=== PATIENT | female | born 1950 | race Caucasian/White ===

== ENCOUNTER 2016-09-17 09:55 | Observation (INO) | payer OTHER ==
[~2016-09-17] VITALS: Ht 167.6 cm; Wt 60.0 kg
[~2016-09-17 09:55] MED LIST: ALBU6.7H INH; CALC750T PO; ESTR42.5V PV; FLUT1INH INH; MELA10TA3 PO; MONT10TA2 PO; NITR50CA27 PO; PROB1TAB PO; TAB-TAB PO; [UNRECOGNIZED DRUG - CODE] PO
[2016-09-17 09:59] VITALS: BP 143/73; PULSE 68; RESP 16; TEMP 98.1; O2SAT 99
[2016-09-17 10:05] VITALS: RESP 16; O2SAT 98
[2016-09-17] MEDS ORDERED: [UNRECOGNIZED DRUG - CODE] PO (10:05)
[2016-09-17] MEDS ORDERED: MONT10TA2 PO (10:05)
[2016-09-17 10:28] VITALS: BP_SYST 123; BP_SYST 151; BP_DIAS 64; BP_DIAS 71; PULSE 58; RESP 16; O2SAT 98
[2016-09-17] MEDS ORDERED: ASPIRIN 325 MG TAB PO ONE (10:30)
[2016-09-17] MEDS ORDERED: SODIUM CHLORIDE 0.9% FLUSH 10 ML FLUSH IVF PRN (10:30)
--- NOTE | 2016-09-17 10:35 | PD ---
HPI Chief Complaint: Chest Pain Time Seen by Provider: 10:20 Travel History International Travel<30 days: No Contact w/Intl Traveler<30days: No Traveled to known affect area: No History of Present Illness HPI 66yo F with no significant PMH presents to the ED with c/o midsternal chest pain for 1 week. States it is pressure like and intermittent but now more constant. Sometimes it radiates up to neck but not currently. Denies any sob, n/v, diaphoresis, abdominal pain, focal weakness or numbness. Pt had abnormal EKG 2 years ago and had negative stress test with Dr. Menendez. Pt has not had any work up or chest pain since then. Former smoker. PFSH Past Medical History Cancer: No Cardiovascular Problems: No ( HAD CARDIAC CLEARANCE) Diabetes: No Endocrine: Yes Gastrointestinal Disorders: Yes (ACID REFLUX, ESOPHAGEAL STRICTURE DILATION) Genitourinary: No Hepatitis: No Hiatal Hernia: No Immune Disorder: No Musculoskeletal: No Neurologic: No Psychiatric: Yes (SLIGHTLY CLAUSTROPHOBIC) Reproductive: Yes (BILATERAL PELVIC MASSES) Respiratory: Yes (ASTHMA) Thyroid Disease: Yes (HYPOTHYROID) Tetanus Vaccination: < 5 Years Influenza Vaccination: Yes ?: Not Past Surgical History Abdominal Surgery: No AICD: No Cardiac Surgery: No Ear Surgery: No Endocrine Surgery: No Eye Surgery: No Genitourinary Surgery: No Gynecologic Surgery: Yes (HYSTERECTOMY) Joint Replacement: No Oral Surgery: No Pacemaker: No Thoracic Surgery: No Other Surgery: Yes Social History Alcohol Use: Yes (ocassionally ) Tobacco Use: No Substance Use: No Allergies-Medications (Allergen,Severity, Reaction): Coded Allergies: Nonsteroidal Anti-Inflammatory Agts (Verified Allergy, Intermediate, FACIAL SWELLING, 09/17/16) Reported Meds & Prescriptions Reported Meds & Active Scripts Active Reported Nature-Throid (Thyroid) 162.5 Mg Tab 162.5 Mg PO DAILY Singulair (Montelukast Sodium) 10 Mg Tab 10 Mg PO HS Review of Systems Except as stated in HPI: all other systems reviewed are Neg Physical Exam Narrative GENERAL: 66yo F not in distress. SKIN: Focused skin assessment warm/dry. HEAD: Atraumatic. Normocephalic. EYES: Pupils equal and round. No scleral icterus. No injection or drainage. ENT: No nasal bleeding or discharge. Mucous membranes pink and moist. NECK: Trachea midline. No JVD. CARDIOVASCULAR: Regular rate and rhythm. No murmur appreciated. RESPIRATORY: No accessory muscle use. Clear to auscultation. Breath sounds equal bilaterally. GASTROINTESTINAL: Abdomen soft, non-tender, nondistended. MUSCULOSKELETAL: No obvious deformities. No clubbing. No cyanosis. No edema. NEUROLOGICAL: Awake and alert. No obvious cranial nerve deficits. Motor grossly within normal limits. Normal speech. PSYCHIATRIC: Appropriate mood and affect; insight and judgment normal. Data Data Last Documented VS Vital Signs Date Time Temp Pulse Resp B/P Pulse Ox O2 Delivery O2 Flow Rate FiO2 09/17/16 11:27 58 16 124/68 99 Room Air 09/17/16 09:59 98.1 Orders Electrocardiogram (09/17/16 ) Basic Metabolic Panel (Bmp) (09/17/16 10:27) Ckmb (Isoenzyme) Profile (09/17/16 10:27) Complete Blood Count With Diff (09/17/16 10:27) Magnesium (Mg) (09/17/16 10:27) Prothrombin Time / Inr (Pt) (09/17/16 10:27) Act Partial Throm Time (Ptt) (09/17/16 10:27) Troponin I (09/17/16 10:27) Chest, Single Ap (09/17/16 10:27) Ecg Monitoring (09/17/16 10:27) Bilateral Bp Monitoring (09/17/16 10:27) Iv Access Insert/Monitor (09/17/16 10:27) Oximetry (09/17/16 10:27) Oxygen Administration (09/17/16 10:27) Aspirin (Aspirin) (09/17/16 10:30) Sodium Chloride 0.9% Flush (Ns Flush) (09/17/16 10:30) Labs Laboratory Tests Test 09/17/16 10:35 White Blood Count 6.1 TH/MM3 Red Blood Count 4.25 MIL/MM3 Hemoglobin 13.4 GM/DL Hematocrit 37.9 % Mean Corpuscular Volume 89.1 FL Mean Corpuscular Hemoglobin 31.5 PG Mean Corpuscular Hemoglobin 35.3 % Concent Red Cell Distribution Width 12.8 % Platelet Count 239 TH/MM3 Mean Platelet Volume 7.7 FL Neutrophils (%) (Auto) 48.3 % Lymphocytes (%) (Auto) 37.2 % Monocytes (%) (Auto) 9.0 % Eosinophils (%) (Auto) 4.8 % Basophils (%) (Auto) 0.7 % Neutrophils # (Auto) 3.0 TH/MM3 Lymphocytes # (Auto) 2.3 TH/MM3 Monocytes # (Auto) 0.6 TH/MM3 Eosinophils # (Auto) 0.3 TH/MM3 Basophils # (Auto) 0.0 TH/MM3 CBC Comment DIFF FINAL Differential Comment Prothrombin Time 10.2 SEC Prothromb Time International 0.9 RATIO Ratio Activated Partial 24.7 SEC Thromboplast Time Sodium Level 141 MEQ/L Potassium Level 3.9 MEQ/L Chloride Level 107 MEQ/L Carbon Dioxide Level 26.6 MEQ/L Anion Gap 7 MEQ/L Blood Urea Nitrogen 15 MG/DL Creatinine 0.93 MG/DL Estimat Glomerular Filtration 61 ML/MIN Rate Random Glucose 84 MG/DL Calcium Level 8.9 MG/DL Magnesium Level 2.0 MG/DL Total Creatine Kinase 68 U/L Troponin I LESS THAN 0.02 NG/ML MDM Medical Decision Making Medical Screen Exam Complete: Yes Emergency Medical Condition: Yes Interpretation(s) EKG: NSR 61bpm. Normal axis. ST depression in II, III, aVF, V4-V6, unchanged from prior EKG in 2015. Differential Diagnosis ACS vs. costochondritis vs. GERD vs. pneumonia Narrative Course 66yo F with intermittent chest pressure for a week, now more constant. Pt has not had recent cardiac work up and has not follow up with cardiology as instructed. Labs reviewed, no leukocytosis. Troponin negative. CXR showed no acute disease. Aspirin 325mg given. Pt to be admitted to chest pain center for serial EKG and cardiac enzyme and further work up for chest pain. Pt agrees with plan. Diagnosis Primary Impression: Chest pain Qualified Code: R07.9 - Chest pain, unspecified type Admitting Information Admitting Physician Requests: Hyun Kulkarni DO Sep 17, 2016 10:35
[2016-09-17 10:49] LABS: BASOPHIL % 0.7 % (0.0-2.0); EOSINOPHIL # 0.3 TH/MM3 (0-0.4); EOSINOPHIL % 4.8 % (0.0-4.0); HEMATOCRIT 37.9 % (35.0-46.0); HEMO FLAGS DIFF FINAL; LYMPH % 37.2 % (9.0-44.0); LYMPHOCYTE # 2.3 TH/MM3 (1.0-4.8); MEAN CELL VOLUME 89.1 FL (80.0-100.0); MEAN CORPUSCULAR HEMOGLOBIN 31.5 PG (27.0-34.0); MEAN CORPUSCULAR HGB CONC 35.3 % (32.0-36.0); NEUT % 48.3 % (16.0-70.0); PLATELET COUNT 239 TH/MM3 (150-450); RED BLOOD COUNT 4.25 MIL/MM3 (4.00-5.30); RED CELL DISTRIBUTION WIDTH 12.8 % (11.6-17.2); WHITE BLOOD COUNT 6.1 TH/MM3 (4.0-11.0)
[2016-09-17 10:58] LABS: APTT (PATIENT) 24.7 SEC (24.3-30.1); INTERNATIONAL NORMALIZED RATIO 0.9 RATIO; PROTHROMBIN TIME - PATIENT 10.2 SEC (9.8-11.6)
--- NOTE | 2016-09-17 11:06 | RADRPT ---
EXAM DATE/TIME: 09/17/2016 10:47 [facility] COMPARISON: No previous studies available for comparison. INDICATIONS : Chest pain. MEDICAL HISTORY : None. SURGICAL HISTORY : None. ENCOUNTER: Initial ACUITY: 1 week PAIN SCORE: 3/10 LOCATION: Bilateral chest FINDINGS: A single view of the chest demonstrates the lungs to be symmetrically aerated without evidence of mas s, infiltrate or effusion. There is stable scarring within the right upper lung. The cardiomediastin al contours are unremarkable. Osseous structures are intact. CONCLUSION: No acute disease. Stable scarring within the right upper lung. Avelino Portillo MD on September 17, 2016 at 11:04 Board Certified Radiologist. This report was verified electronically.
[2016-09-17 11:13] LABS: ANION GAP 7 MEQ/L (5-15); BICARBONATE 26.6 MEQ/L (21.0-32.0); BLOOD UREA NITROGEN 15 MG/DL (7-18); CHLORIDE 107 MEQ/L (98-107); GLOMERULAR FILTRATION RATE 61 ML/MIN (>89); POTASSIUM 3.9 MEQ/L (3.5-5.1); SODIUM (NA) 141 MEQ/L (136-145)
[2016-09-17 11:19] LABS: CREATINE KINASE 68 U/L (26-192)
[2016-09-17 11:27] VITALS: BP 124/68; PULSE 58; RESP 16; O2SAT 99
[2016-09-17 12:16] VITALS: BP 125/60; PULSE 56; RESP 16; TEMP 97.8; O2SAT 98
[2016-09-17 13:54] VITALS: BP 124/73; TEMP 97.8
--- NOTE | 2016-09-17 14:09 | HHI.DCPOC ---
Discharge Care Plan Diagnosis: (1) Chest pain, atypical Goals to Promote Your Health * To prevent worsening of your condition and complications * To maintain your health at the optimal level Directions to Meet Your Goals Take your medications as prescribed Follow your dietary instruction Follow activity as directed Keep your appointments as scheduled Take your immunizations and boosters as scheduled If your symptoms worsen call your PCP, if no PCP go to Urgent Care Center or Emergency Room Smoking is Dangerous to Your Health. Avoid second hand smoke Call the 24-hour hour crisis hotline for domestic abuse at Huey Villavicencio Sep 17, 2016 14:09
[2016-09-17] MEDS ORDERED: SODIUM CHLORIDE 0.9% FLUSH 5 ML FLUSH IVF PRN (14:15)
[2016-09-17] MEDS ORDERED: ONDANSETRON HCL 4 MG/2 ML VIAL IV PRN (14:15)
[2016-09-17] MEDS ORDERED: ACETAMINOPHEN 500 MG CPLT PO PRN (14:15)
[2016-09-17] MEDS ORDERED: PANTOPRAZOLE SOD 40 MG DELAYED RELEASE TAB PO SCH (14:15)
[2016-09-17] MEDS ORDERED: ALPRAZolam 0.25 MG TAB PO PRN (14:15)
--- NOTE | 2016-09-17 15:00 | HHI.HP ---
HPI Primary Care Physician No Primary Care Physician Chief Complaint Chest pain History of Present Illness This is a 66-year-old female that presents to the ED via private vehicle with a complaint of 1-1/2 weeks of constant chest discomfort that seems to wax and wane but never completely gone. Found nothing really to worsen or improve it. Last night the discomfort also radiated into the jaw. She took an aspirin and thought sleep rate she woke up and that discomfort was gone. She's had no shortness breath, nausea, or diaphoresis. She denies history of disease. She states she had a cardiac workup a couple years ago for preop clearance. She states that she had an abnormal EKG at rest and subsequent had a chemical stress test that was normal. She follow Dr. Menendez for that but has not seen him since. She states is related to stress. Her maybe getting another job anemia to move back to [place]. She states that when she starts thinking about this the discomfort will worsen. Review of Systems General: Patient denies fevers, chills recent, and recent travel HEENT: Patient denies headache, sore throat, difficulty swallowing. Cardiovascular: Has the chest discomfort as mentioned above. Denies sensation of heart beating rapidly or irregularly. No syncope. Respiratory: Denies shortness of breath or inspirational chest discomfort. Denies coughing wheezing or hemoptysis. GI: Patient denies nausea, vomiting, diarrhea, abdominal pain, bloody stools. Musculoskeletal: Patient denies joint pain or edema. Denies calf pain or edema. Neurovascular: Patient denies numbness, tingling, weakness in extremities. Denies headache. Endocrine: Denies polyuria and polydipsia. Hematologic: Denies easy bruising. Skin: Denies rash or itching. Past Family Social History Allergies: Coded Allergies: Nonsteroidal Anti-Inflammatory Agts (Verified Allergy, Intermediate, FACIAL SWELLING, 09/17/16) Past Medical History Hypothyroidism. GERD. Denies hypertension, hyperlipidemia, diabetes, and CAD. Past Surgical History Hysterectomy. Reported Medications Reported Meds & Active Scripts Active Reported Nature-Throid (Thyroid) 162.5 Mg Tab 162.5 Mg PO DAILY Singulair (Montelukast Sodium) 10 Mg Tab 10 Mg PO HS Family History Denies family history of CAD. Social History Patient is a lifetime nonsmoker. Denies illicit drugs. Rarely has alcohol. Physical Exam Vital Signs Vital Signs Date Time Temp Pulse Resp B/P Pulse Ox O2 Delivery O2 Flow Rate FiO2 09/17/16 13:54 97.8 58 16 124/73 99 09/17/16 12:16 97.8 56 16 125/60 98 Room Air 09/17/16 11:27 58 16 124/68 99 Room Air 09/17/16 10:28 58 16 151/71 98 Room Air 123/64 09/17/16 10:05 67 16 98 Room Air 09/17/16 10:05 98 Room Air 09/17/16 10:05 16 98 Room Air 09/17/16 09:59 98.1 68 16 143/73 99 Physical Exam GENERAL: This is a well-nourished, well-developed patient, in no apparent distress. Patient speaks in clear complete sentences. Patient is pleasant. HEENT: Head is atraumatic and normocephalic. Neck is supple without lymphadenopathy and trachea is midline. No JVD or carotid bruits. CARDIOVASCULAR: Regular rate and rhythm without murmurs, gallops, or rubs. RESPIRATORY: Clear to auscultation. Breath sounds equal bilaterally. No wheezes , rales, or rhonchi. Chest wall is nontender. No use of accessory muscles. GASTROINTESTINAL: Abdomen is nontender, nondistended. Abdomen soft. No obvious pulsatile mass or bruit. No CVA tenderness. Strong femoral pulses bilaterally. Normal bowel sounds in all quadrants. MUSCULOSKELETAL: Patient is moving upper and lower extremities freely. No calf tenderness or edema, no Homans sign. Strong pulses in upper and lower extremities. NEUROLOGICAL: Patient is alert and oriented. Cranial nerves 2-12 are grossly intact. No focal deficits and speech is clear. SKIN: No rash and turgor is normal. Laboratory Laboratory Tests Test 09/17/16 10:35 White Blood Count 6.1 Red Blood Count 4.25 Hemoglobin 13.4 Hematocrit 37.9 Mean Corpuscular Volume 89.1 Mean Corpuscular Hemoglobin 31.5 Mean Corpuscular Hemoglobin 35.3 Concent Red Cell Distribution Width 12.8 Platelet Count 239 Mean Platelet Volume 7.7 Neutrophils (%) (Auto) 48.3 Lymphocytes (%) (Auto) 37.2 Monocytes (%) (Auto) 9.0 Eosinophils (%) (Auto) 4.8 Basophils (%) (Auto) 0.7 Neutrophils # (Auto) 3.0 Lymphocytes # (Auto) 2.3 Monocytes # (Auto) 0.6 Eosinophils # (Auto) 0.3 Basophils # (Auto) 0.0 CBC Comment DIFF FINAL Differential Comment Prothrombin Time 10.2 Prothromb Time International 0.9 Ratio Activated Partial 24.7 Thromboplast Time Sodium Level 141 Potassium Level 3.9 Chloride Level 107 Carbon Dioxide Level 26.6 Anion Gap 7 Blood Urea Nitrogen 15 Creatinine 0.93 Estimat Glomerular Filtration 61 Rate Random Glucose 84 Calcium Level 8.9 Magnesium Level 2.0 Total Creatine Kinase 68 Troponin I LESS THAN 0.02 Result Diagram: 09/17/16 1035 09/17/16 1035 Imaging Last 24 hours Impressions Chest X-Ray 09/17/16 1027 Signed Impressions: Service Date/Time: August 10:47 - CONCLUSION: No acute disease. Stable scarring within the right upper lung. Avelino Portillo MD Course Initial EKG is sinus rhythm with nonspecific inferolateral ST-T changes. This is similar to prior EKG dated 2014. Assessment and Plan Assessment and Plan * Atypical chest pain: Patient has atypical chest discomfort. She has been seen by Dr. Sánchez of cardiology in the chest pain center. She's had discomfort constantly for week and half in her first troponin and EKG are okay. She had a cardiac workup a couple years ago to evaluate abnormal EKG for preop clearance. That stress test was normal per the patient. At this time to further testing will be needed. She will be discharged home with instructions to follow-up with local physician. Return to ED as needed. Patient is stable at this time. She is agreeable to this plan. Huey Villavicencio Sep 17, 2016 15:00
[2016-09-17] MEDS ORDERED: SODIUM CHLORIDE 0.9% FLUSH 5 ML FLUSH IVF SCH (21:00)
[2016-09-18] MEDS ORDERED: ASPIRIN 325 MG TAB PO SCH (09:00)
--- NOTE | 2016-09-18 20:16 | EKG ---
Date Performed: 09/17/2016 Time Performed: 10:12:30 PTAGE: 66 years EKG: Sinus rhythm NONSPECIFIC ST & T-WAVE ABNORMALITY Mild variation in the ST-T abnormalities when compared to the pr ior tracing BORDERLINE ECG PREVIOUS TRACING : 08/30/2014 10.20 DOCTOR: Toi Jenkins Interpretating Date/Time 09/18/2016 20:15:53
== END 2016-09-17 14:37 | disposition home or self-care (01) ==
LOC: NEPC 09:55 → NEDA 12:17
DX: R07.9 Chest pain, unspecified (principal); Z87.891 Personal history of nicotine dependence; K21.9 Gastro-esophageal reflux disease without esophagitis; E03.9 Hypothyroidism, unspecified; R94.31 Abnormal electrocardiogram [ECG] [EKG]
CPT/HCPCS: 71010; 80048; 82550; 83735; 84484; 85025; 85610; 85730; 93005; 99285; G0378